=== PATIENT | female | born 1975 ===

== ENCOUNTER 2020-12-16 05:27 | Day surgery (SDC) | payer OTHER ==
[~2020-12-16 05:27] MED LIST: CHILDREN'S ASPI81 MG PO; CLINORIL; FIORICET PO; FLOVENT HFA10.6 GM IH; PARAFON PO; PROAIR HFA8.5 GM IH; TEGRETOL XR200 MG PO; ZESTRIL20 MG PO
== END 2020-12-16 12:15 | disposition home or self-care (01) ==
LOC: CIR.AMB 05:27
PROVIDERS: ATTEND Orthopaedic Surgery Sports Medicine
DX: S83.242A Other tear of medial meniscus, current injury, left knee, initial encounter (principal); M23.352 Other meniscus derangements, posterior horn of lateral meniscus, left knee; M23.342 Other meniscus derangements, anterior horn of lateral meniscus, left knee; M67.52 Plica syndrome, left knee; Z20.822 Contact with and (suspected) exposure to COVID-19